=== PATIENT | female | born 1960 | race African-American/Black ===

== ENCOUNTER 2022-03-07 16:51 | Emergency (ER) | payer OTHER | END 2022-03-07 23:27 | disposition home or self-care (01) | LOC: FER 16:51 | DX: M25.512 Pain in left shoulder (principal); M54.2 Cervicalgia; E11.9 Type 2 diabetes mellitus without complications; I10 Essential (primary) hypertension; V49.40XA Driver injured in collision with unspecified motor vehicles in traffic accident, initial encounter | CPT/HCPCS: 72125; 73030; Q0162 ==